=== PATIENT | male | born 1975 | race Caucasian/White ===

== ENCOUNTER 2021-06-15 10:41 | Emergency (ER) | payer BC, OTHER ==
--- NOTE | 2021-06-15 11:59 | EDM.PDOC ---
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 had a fever 5d ago although no fever today has taken ibuprofen 200 mg 2 tabs 2-3x/d resting over the weekend (today is Mon) PCP had been Dr Coto, now retired - Related Data Allergies Allergy/AdvReac Type Severity Reaction Status Date / Time No Known Allergies Allergy Verified 06/15/21 12:00 Home Meds: Home Meds NK [No Known Home Meds] 06/15/21 [History] ED ROS GENERAL - Review of Systems Review Of Systems: See Below Constitutional: Reports: Fever HEENT: Reports: No Symptoms Respiratory: Reports: Shortness of Breath, Cough Cardiovascular: Reports: No Symptoms Endocrine: Reports: No Symptoms GI/Abdominal: Reports: No Symptoms : Reports: No Symptoms Musculoskeletal: Reports: No Symptoms Skin: Reports: No Symptoms Neurological: Reports: No Symptoms Psychiatric: Reports: No Symptoms Hematologic/Lymphatic: Reports: No Symptoms Immunologic: Reports: No Symptoms ED EXAM, GENERAL - Physical Exam Exam: See Below Exam Limited By: No Limitations General Appearance: Alert, WD/WN, No Apparent Distress Ears: Normal External Exam, Normal Canal, Normal TMs Nose: Normal Inspection, Normal Mucosa, No Blood Throat/Mouth: Normal Inspection, Normal Lips, Normal Teeth, Normal Gums, Normal Oropharynx, Normal Voice, No Airway Compromise Head: Atraumatic, Normocephalic Neck: Normal Inspection, Supple, Non-Tender, Full Range of Motion Respiratory/Chest: No Respiratory Distress, Lungs Clear, Normal Breath Sounds, Chest Non-Tender Cardiovascular: Normal Peripheral Pulses, Regular Rate, Rhythm, No Edema, No Murmur GI/Abdominal: Soft, Non-Tender Back Exam: Normal Inspection, Full Range of Motion Extremities: Normal Inspection, Normal Range of Motion, Non-Tender, Normal Capillary Refill Neurological: Alert, Oriented, CN II-XII Intact, Normal Cognition, No Motor/Sensory Deficits Psychiatric: Normal Affect, Normal Mood Lymphatic: No Adenopathy Course - Vital Signs Last Recorded V/S: Last Vital Signs Temp 37.4 C 06/15/21 10:45 Pulse 68 06/15/21 10:45 Resp 18 06/15/21 10:45 BP 140/80 06/15/21 10:45 Pulse Ox 95 06/15/21 10:45 - Orders/Labs/Meds Orders: Active Orders 24 hr Category Date Time Status EKG Documentation Completion [RC] ASDIRECTED Care 06/15/21 12:02 Ordered Chest 1V Frontal [CR] Stat Exams 06/15/21 12:03 Ordered EKG 12 Lead [EK] Routine Ther 06/15/21 12:02 Ordered Labs: Laboratory Tests 06/15/21 06/15/21 06/15/21 Range/Units 10:45 12:15 12:15 WBC 2.9 L (3.2-10.1) x10-3/uL RBC 4.27 (3.90-5.90) x10(6)uL Hgb 13.2 (12.9-17.7) g/dL Hct 38.7 (38.3-50.1) % MCV 90.7 (80.8-98.7) fL MCH 30.9 (27.0-33.3) pg MCHC 34.1 (28.7-35.3) g/dL RDW 12.7 (12.4-15.0) % Plt Count 144 (117-477) x10(3)uL MPV 7.4 (6.7-11.0) fL Neut % (Auto) 65.8 (40.3-71.8) % Lymph % (Auto) 22.0 (15.8-45.3) % Harper % (Auto) 11.6 (5.5-15.2) % Eos % (Auto) 0.2 (0.1-6.8) % Baso % (Auto) 0.4 (0.3-3.8) % Neut # (Auto) 1.9 (1.7-6.9) x10-3/uL Lymph # (Auto) 0.6 (0.5-4.5) x10-3/uL Harper # (Auto) 0.3 (0.0-1.2) x10-3/uL Eos # (Auto) 0.0 (0.0-0.6) x10-3/uL Baso # (Auto) 0.0 (0.0-0.3) x10-3/uL Sodium 141 (135-145) mmol/L Potassium 3.7 (3.5-5.3) mmol/L Chloride 104 (100-110) mmol/L Carbon Dioxide 27 (21-32) mmol/L BUN 11 (7-18) mg/dL Creatinine 1.0 (0.70-1.30) mg/dL Est Cr Clr Drug Dosing 107.97 mL/min Estimated GFR (MDRD) > 60 (>60) BUN/Creatinine Ratio 11.0 (9-20) Glucose 92 (80-116) mg/dL Calcium 8.1 L (8.6-10.2) mg/dL Total Bilirubin 0.5 (0.1-1.3) mg/dL AST 23 (5-25) IU/L ALT 51 H (12-36) U/L Alkaline Phosphatase 56 (56-112) IU/L Troponin I (4.0-60.3) pg/mL C-Reactive Protein (0.5-0.9) mg/dL Total Protein 6.8 (6.0-8.0) g/dL Albumin 3.4 L (3.5-5.2) g/dL Globulin 3.4 g/dL Albumin/Globulin Ratio 1.0 SARS-CoV-2 RNA (JACLYN) Positive H (NEGATIVE) 06/15/21 06/15/21 Range/Units 12:15 12:15 WBC (3.2-10.1) x10-3/uL RBC (3.90-5.90) x10(6)uL Hgb (12.9-17.7) g/dL Hct (38.3-50.1) % MCV (80.8-98.7) fL MCH (27.0-33.3) pg MCHC (28.7-35.3) g/dL RDW (12.4-15.0) % Plt Count (117-477) x10(3)uL MPV (6.7-11.0) fL Neut % (Auto) (40.3-71.8) % Lymph % (Auto) (15.8-45.3) % Harper % (Auto) (5.5-15.2) % Eos % (Auto) (0.1-6.8) % Baso % (Auto) (0.3-3.8) % Neut # (Auto) (1.7-6.9) x10-3/uL Lymph # (Auto) (0.5-4.5) x10-3/uL Harper # (Auto) (0.0-1.2) x10-3/uL Eos # (Auto) (0.0-0.6) x10-3/uL Baso # (Auto) (0.0-0.3) x10-3/uL Sodium (135-145) mmol/L Potassium (3.5-5.3) mmol/L Chloride (100-110) mmol/L Carbon Dioxide (21-32) mmol/L BUN (7-18) mg/dL Creatinine (0.70-1.30) mg/dL Est Cr Clr Drug Dosing mL/min Estimated GFR (MDRD) (>60) BUN/Creatinine Ratio (9-20) Glucose (80-116) mg/dL Calcium (8.6-10.2) mg/dL Total Bilirubin (0.1-1.3) mg/dL AST (5-25) IU/L ALT (12-36) U/L Alkaline Phosphatase (56-112) IU/L Troponin I 7.9 (4.0-60.3) pg/mL C-Reactive Protein 1.0 H (0.5-0.9) mg/dL Total Protein (6.0-8.0) g/dL Albumin (3.5-5.2) g/dL Globulin g/dL Albumin/Globulin Ratio SARS-CoV-2 RNA (JACLYN) (NEGATIVE) - Re-Assessments/Exams Free Text/Narrative Re-Assessment/Exam: 06/15/21 13:57 CxR 1v neg on prelim ED read WBC 2.9 CRP near normal PO 95-98% in ED on RA fatigued, no cough observed no fever x 24h PE neg, hydration appears adequate, epigastrium NT altho mild dyspepsia by hx overall doing well, fever may have broken long discussion re tx pt asked re Maximo, however he does not meet criteria Departure - Departure Time of Disposition: 13:53 Disposition: Home, Self-Care 01 Condition: Good Clinical Impression: Pneumonia due to COVID-19 virus - Discharge Information *PRESCRIPTION DRUG MONITORING PROGRAM REVIEWED*: Not Applicable *COPY OF PRESCRIPTION DRUG MONITORING REPORT IN PATIENT SH[place]ON[place]: Not Applicable Instructions: COVID-19: What to Do if You Are Sick - CDC (09/25/2020), Symptoms of Coronavirus - CDC (11/17/2020), Similarities and Differences Between Flu and COVID-19 - CDC Additional Instructions: Take ibuprofen 200 mg 3 tabs and acetaminophen 325 mg 3 tabs 4 times a day for one week, longer if needed. Get adequate rest. Maintain fluids. Take Tums or Rolaids or 2 tablespoons of a liquid antacid every 4 hours as needed for heartburn. Obtain a pulse oximeter and check your oxygen level 1-2 times a day. Notify your physician or the Emergency Department if you oxygen is 88% or less. Limit activities. Call your physician or Emergency Department for additional questions. See your physician for a followup visit in 2 weeks for further recommendations. Sepsis Event Note (ED) - Focused Exam Vital Signs: Vital Signs Temp Pulse Resp BP Pulse Ox 06/15/21 10:45 37.4 C 68 18 140/80 95 - My Orders Last 24 Hours: My Active Orders 06/15/21 12:02 EKG Documentation Completion [RC] ASDIRECTED EKG 12 Lead [EK] Routine 06/15/21 12:03 Chest 1V Frontal [CR] Stat - Assessment/Plan Last 24 Hours: My Active Orders 06/15/21 12:02 EKG Documentation Completion [RC] ASDIRECTED EKG 12 Lead [EK] Routine 06/15/21 12:03 Chest 1V Frontal [CR] Stat
--- NOTE | 2021-06-15 16:10 | CR ---
INDICATION: History of COVID positive COVID today. CHEST, ONE VIEW: AP upright portable view of the chest revealed the heart to appear somewhat prominent, but emphasized by poor inspiration and AP positioning. It may be slightly enlarged. A definite active infiltrate or effusion was not identified, although markings are emphasized by the poor inspiration, making it difficult to exclude minimal patchy bronchopneumonia. IMPRESSION: 1. No definite acute process. 2. Possible cardiac enlargement. 3. When clinically possible, full-inspiration PA and lateral views of the chest may be helpful for further evaluation. MTDD
== END 2021-06-15 14:05 | disposition home or self-care (01) ==
LOC: FB.ED 10:41
DX: U07.1 COVID-19 (principal); J12.82 Pneumonia due to coronavirus disease 2019
CPT/HCPCS: 36415; 71045; 80053; 84484; 85025; 86140; 93005; 99285-25; U0002